=== PATIENT | female | born 1985 | race Caucasian/White ===

== ENCOUNTER → 2020-01-09 15:30 | Outpatient (REF) | payer BC, SELFPAY | LOC: ANHLAB 15:30 | PROVIDERS: Visit Provider Nurse Practitioner | DX: D22.4 Melanocytic nevi of scalp and neck (principal) | CPT/HCPCS: 88305 ==

== ENCOUNTER 2022-06-02 07:00 | Outpatient (NON) | payer OTHER, SELFPAY | END 2022-06-03 13:34 | disposition home or self-care (01) | PROVIDERS: Visit Provider Nurse Practitioner | DX: D22.5 Melanocytic nevi of trunk (principal) | CPT/HCPCS: 88305 ==